=== PATIENT | female | born 1975 | race Caucasian/White ===

== ENCOUNTER → 2019-09-10 12:15 | Outpatient (CLI) | payer BC, SELFPAY ==
--- NOTE | ~2019-09-10 | MR_ITS ---
EXAMINATION: MR thoracic spine wo/w con EXAM DATE: 09/10/2019 13:21 INDICATION: Follow-up syringohydromyelia. TECHNIQUE: Multi-sequential, multiplanar MR images of the thoracic spine were obtained without contra st. Sagittal T1, T2, T2 fat saturation, axial T2 weighted images reviewed. Axial T1 weighted sequenc e. Patient was then injected with 12 mL Multihance intravenous contrast and reimaged. Postcontrast axial and sagittal T1-weighted fat saturation sequences were obtained. There is no prior study for c omparison. FINDINGS: There is mild thoracic facet arthropathy. There is no thoracic syringohydromyelia. The spin al cord signal intensity and intrinsic morphology is normal. The vertebral bodies are aligned in the AP dimension. Vertebral body and disc heights are well-maintained. Thoracic central canal and neural foramen are widely patent. Small lower thoracic hemangioma. Paraspinal soft tissue is unremarkable. T here are no areas of abnormal enhancement on the post contrast images. IMPRESSION: Unremarkable MR thoracic spine wo/w con exam. Reviewed, dictated and finalized at location B. [employer]
[2019-09-10 12:58] LABS: Blood Urea Nitrogen 15 mg/dL (8-26); Estimated Glomerular Filt Rate > 60
== END ==
DX: G95.0 Syringomyelia and syringobulbia (principal)
CPT/HCPCS: 72157; A9577